=== PATIENT | female | born 1960 | race Caucasian/White ===

== ENCOUNTER 2018-06-15 07:30 | Day surgery (SDC) ==
[2018-06-15] MEDS: BETADINE OPTH PREP OP PRN ×2 (08:40→09:17)
[2018-06-15] MEDS: TETRACAINE 0.5% UNIT-DOSE OP PRN ×2 (08:40→09:17)
[2018-06-15] MEDS: CYCLOGYL 2% OPTH OP PRN ×3 (08:41→08:51)
[2018-06-15] MEDS ORDERED: DEX-MOXI-KETOR OPTH INJ 1/0.5/0.4 MG/ML IO ONE (08:52)
[2018-06-15] MEDS ORDERED: BSS WITH EPINEPHRINE OP ONE (08:52)
[2018-06-15] MEDS ORDERED: ZOFRAN 4 MG/2 ML IVP ONE (08:52)
[2018-06-15] MEDS ORDERED: BRIMONIDINE TARTRATE 0.2% OPTH SOL OP PRN (08:52)
[2018-06-15] MEDS ORDERED: LIDOCAINE 1% 20 ML MDV ID STA (08:52)
[2018-06-15] MEDS ORDERED: LIDOCAINE 1%/PHENYLEPHRINE 1.5% BSS (SURGERY) INTRAOCULA ONE (08:52)
[2018-06-15] MEDS ORDERED: SUBLIMAZE ONE (09:21)
[2018-06-15] MEDS ORDERED: VERSED ONE (09:21)
[2018-06-15 11:36] VITALS: TEMP 97.6
[2018-06-23 14:28] VITALS: BP 123/56
== END 2018-06-15 10:10 | disposition home or self-care (01) ==
LOC: SURG 07:30
PROVIDERS: ATTEND Ophthalmology
DX: H25.811 Combined forms of age-related cataract, right eye (principal)

== ENCOUNTER 2018-06-29 07:22 | Day surgery (SDC) ==
[2018-06-29] MEDS: BETADINE OPTH PREP OP PRN ×2 (08:14→09:05)
[2018-06-29] MEDS: TETRACAINE 0.5% UNIT-DOSE OP PRN ×2 (08:14→09:05)
[2018-06-29] MEDS: CYCLOGYL 2% OPTH OP PRN ×3 (08:15→08:25)
[2018-06-29] MEDS ORDERED: LIDOCAINE 1% 20 ML MDV ID STA (08:22)
[2018-06-29] MEDS ORDERED: BRIMONIDINE TARTRATE 0.2% OPTH SOL OP PRN (08:22)
[2018-06-29] MEDS ORDERED: ZOFRAN 4 MG/2 ML IVP ONE (08:22)
[2018-06-29] MEDS ORDERED: SUBLIMAZE ONE (09:12)
[2018-06-29] MEDS ORDERED: VERSED ONE (09:12)
[2018-06-29] MEDS ORDERED: ZOFRAN 4 MG/2 ML ONE (09:12)
[2018-06-29] MEDS: BSS WITH EPINEPHRINE OP ONE ×2 (09:13→09:17)
[2018-06-29] MEDS: LIDOCAINE 1%/PHENYLEPHRINE 1.5% BSS (SURGERY) INTRAOCULA ONE ×2 (09:13→09:17)
[2018-06-29] MEDS: DEX-MOXI-KETOR OPTH INJ 1/0.5/0.4 MG/ML IO ONE ×2 (09:13→09:17)
[2018-06-29 11:00] VITALS: BP 137/74; TEMP 97.4
== END 2018-06-29 10:15 | disposition home or self-care (01) ==
LOC: SURG 07:22
PROVIDERS: ATTEND Ophthalmology
DX: H25.812 Combined forms of age-related cataract, left eye (principal)